=== PATIENT | female | born 1950 | race Caucasian/White ===

== ENCOUNTER 2019-12-12 09:15 | Inpatient (IN) ==
[2019-12-05 17:33] LABS: Blood Urea Nitrogen 13 mg/dl (8-23); Carbon Dioxide 24 mmol/L (22-30); Glomerular Filtration Rate 87; Glucose 91 mg/dL (70-105)
[2019-12-05 17:34] LABS: Basophils # (Auto) 0.06 K/mcL (0.00-0.30); Basophils % (Auto) 0.6 % (0.0-2.0); Chloride 92 mmol/L (96-108); Eosinophils # (Auto) 0.13 K/mcL (0.00-0.70); Eosinophils % (Auto) 1.4 % (0.0-7.0); Granulocytes % (Auto) 68.3 % (38.0-78.0); Hematocrit 38.2 % (34.1-44.9); Hemoglobin 12.5 g/dL (11.2-15.7); Lymphocytes # (Auto) 2.23 K/mcL (1.50-4.80); Lymphocytes % (Auto) 23.8 % (15.5-49.0); Mean Cell Volume 96.2 fL (80.0-100.0); Mean Corpuscular HGB Conc 32.7 g/dL (31.0-36.0); Mean Platelet Volume 8.4 fL (7.4-10.4); Monocytes # (Auto) 0.55 K/mcL (0.10-0.90); Monocytes % (Auto) 5.9 % (1.0-12.0); Platelet Count 291 K/mcL (140-440); RBC 3.97 M/mcL (3.59-5.38); Red Cell Distribution Width 11.9 % (11.5-14.5); WBC 9.4 K/mcL (4.50-11.00)
[2019-12-06 16:09] LABS: Appearance,Urine CLEAR; Bacteria,Urine 0 /hpf (0); Bilirubin,Urine NEG (NEG); Color,Urine YELLOW; Culture Indicated,Urine NO; Glucose,Urine (UA) NEGATIVE (NEG); Ketones,Urine NEG (NEG); Leukocyte Esterase,Urine 25 /uL (NEG); Mucus,Urine FEW /hpf (0); Nitrate,Urine NEG (NEG); Protein,Urine NEG (NEG); Specific Gravity,Urine 1.023 (1.000-1.035); Urine Blood NEG mg/dL (<0.03); Urine Hyaline Cast 34 /lpf (0-2); Urine RBC 2 /hpf (0-1); Urine Squamous Epithelial Cell 2 /hpf (0-4); Urine WBC 3 /hpf (0-4); Urobilinogen,Urine NEG (NEG)
[~2019-12-12 09:15] MED LIST: ACETAMINOPHEN 500 MG TABLET PO SCH; CELECOXIB 200 MG CAPSULE PO SCH; GABAPENTIN 300 MG CAPSULE PO SCH; ceFAZolin 2 GM in DEXTROSE 5% IN WATER 50 ML IV SCH; oxyCODONE 10 MG TAB.ER.12H PO SCH
[2019-12-12] MEDS ORDERED: IPRATROPIUM/ALBUTEROL 3 ML AMPUL.NEB NEB PRN ×2 (10:00→13:02)
[2019-12-12] MEDS ORDERED: SCOPOLAMINE 1 PATCH PATCH TOPICAL PRN (10:00)
[2019-12-12 10:58] LABS: POC Blood Urea Nitrogen 12 mg/dl (8-23); POC CO2 25 mmol/L (22-30); POC Calcium, Ionized 1.18 mmol/L (1.16-1.32); POC Chloride 103 mmol/L (96-108); POC Creatinine 0.6 mg/dl (0.6-1.1); POC Glucose, Random 83 mg/dL (70-105); POC Potassium 4.5 mmol/L (3.3-5.1); POC Sodium 140 mmol/L (133-145)
[2019-12-12] MEDS ORDERED: fentaNYL 100 MCG/2 ML VIAL IV ONE (12:04)
[2019-12-12] MEDS ORDERED: KETAMINE 100 MG/ML ML IV ONE (12:04)
[2019-12-12] MEDS ORDERED: HYDROmorphone 1 MG/ML SYRINGE IV ONE (12:04)
[2019-12-12] MEDS ORDERED: PROPOFOL 200 MG/20 ML VIAL IV ONE (12:04)
[2019-12-12] MEDS ORDERED: ROPIVACAINE HCL/PF 20 ML VIAL IJ ONE (12:04)
[2019-12-12] MEDS ORDERED: TRANEXAMIC ACID 1,000 MG/10 ML VIAL IV ONE (12:04)
[2019-12-12] MEDS ORDERED: ePHEDrine 50 MG/ML AMPUL IV ONE (12:04)
[2019-12-12] MEDS ORDERED: SUCCINYLCHOLINE 20 MG/ML ML IV ONE (12:04)
[2019-12-12] MEDS ORDERED: ONDANSETRON 4 MG/2 ML VIAL IV ONE (12:04)
[2019-12-12] MEDS ORDERED: LIDOCAINE HCL/PF 100 MG/5 ML SYRINGE IV ONE (12:04)
[2019-12-12] MEDS ORDERED: DEXAMETHASONE 10 MG/ML VIAL IV ONE (12:04)
[2019-12-12] MEDS ORDERED: GLYCOPYRROLATE 0.2 MG/ML VIAL IV ONE (12:04)
[2019-12-12] MEDS ORDERED: LACTATED RINGERS 250 ML IV PRN (13:02)
[2019-12-12] MEDS ORDERED: METHOCARBAMOL 1,000 MG/10 ML VIAL IV PRN (13:02)
[2019-12-12] MEDS ORDERED: NALOXONE HCL 0.4 MG/ML VIAL IV PRN (13:02)
[2019-12-12] MEDS ORDERED: FLUMAZENIL 0.1 MG/ML ML IV PRN (13:02)
[2019-12-12] MEDS ORDERED: LACTATED RINGERS 1,000 ML IV SCH (13:15)
--- NOTE | 2019-12-12 13:19 | Brief Operative Note ---
Date of procedure: 12/12/19 Pre-op diagnosis: Right reverse tsa instability Post-op diagnosis: same Procedure: Right shoulder reverse tsa revision Grafts/Implants: Yes Anesthesia: GETA Surgeon: Ernesto Rae Technology Consultant: Tim Redman Estimated blood loss (cc): 50 Specimens Removed/Pathology: none sent Condition: stable Disposition: PACU
[2019-12-12] MEDS ORDERED: TRANEXAMIC ACID 1,000 MG/10 ML VIAL IV SCH (13:20)
[2019-12-12] MEDS ORDERED: POLYETHYLENE GLYCOL 3350 17 GM PACKET PO PRN (13:20)
[2019-12-12] MEDS ORDERED: ACETAMINOPHEN 325 MG TABLET PO PRN (13:20)
[2019-12-12] MEDS ORDERED: oxyCODONE/APAP 5/325MG TABLET PO PRN (13:20)
[2019-12-12] MEDS ORDERED: MAGNESIUM HYDROXIDE 30 ML ORAL.SUSP PO PRN (13:20)
[2019-12-12] MEDS ORDERED: BISACODYL 10 MG SUPP.RECT PR PRN (13:20)
[2019-12-12] MEDS ORDERED: FLEETS ADULT ENEMA PR PRN (13:20)
[2019-12-12] MEDS ORDERED: HYDROmorphone 1 MG/ML SYRINGE IV PRN (13:20)
[2019-12-12] MEDS ORDERED: BENZOCAINE/MENTHOL 1 LOZENGE PO PRN (13:20)
[2019-12-12] MEDS ORDERED: traMADol 50 MG TABLET PO PRN (13:22)
--- NOTE | 2019-12-12 13:34 | Discharge Summary ---
Ortho Discharge - TSA - Patient Instructions Diet: Regular Diet Activity: activity as tolerated, weight bearing as tolerated Total Shoulder Protocol: Leave immobilizer in place except for bathing and ROM. Abduction pillow. Continue to wear sling until seen by physician. Codman Pendulum : These exercises use momentum produced by your body to move your shoulder joint. Bend your knees and shift your weight to your front leg, then back, allowing your arm to swing in the same directions. Using the same technique, alternately shift your weight between your right and left legs, allowing your arm to swing from side to side. These exercises are also performed in counterclockwise and clockwise circular motions. Typically these exercises are performed several times per day, for a set number repetitions or minutes, such as 20 times in a row or 5 minutes at a time. Dressing Care: May shower in 2 days - Follow Up Plan Follow Up Appointments: Tim Redman PA-C [Physician Security Ambassador] - 12/27/19 9:20 am Disposition: Home, Self-Care Prognosis: Good Rehab Potential: Good I certify that the patient requires SNF services: No Overall status at discharge: patient is progressing back to baseline - Orders For Discharge Prescriptions: Aspirin [Ecotrin] 325 mg PO DAILY #14 tab.ec Prescription Printed oxyCODONE/APAP [Percocet 5-325 mg] 1 - 2 tab PO Q4H PRN #30 tab PRN Reason: Pain Prescription Printed Additional Discharge Orders: Physical Therapy at Discharge - TSA Location: None Selected Brace/Splint Location: None Selected
[2019-12-12] MEDS ORDERED: GENTAMICIN SULFATE 800 MG/20 ML VIAL IR ONE (13:35)
[2019-12-12] MEDS ORDERED: CLINDAMYCIN PHOSPHATE TOPICAL PRN (13:45)
[2019-12-12] MEDS ORDERED: BUTALBITAL PO PRN (13:45)
[2019-12-12] MEDS ORDERED: CAFFEINE PO PRN (13:45)
[2019-12-12] MEDS ORDERED: ASPIRIN PO PRN (13:45)
--- NOTE | 2019-12-12 14:04 | Operative Note ---
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 PROCEDURE: Right reverse total shoulder revision of the glenosphere and the poly liner on the femoral side. SURGEON: Ernesto Rae M.D. SERVICE DESK AGENT: Tim Redman PA-C. The PA's assistance was required for the safe and efficient completion of the entire case. This provider's expertise and technical skill were required throughout the case. The PA assisted with preoperative coordination, intraoperative retraction, wound closure, dressing and splint application, as well as postoperative documentation and care coordination. ANESTHESIA: General LMA anesthesia. COMPLICATIONS: None. DESCRIPTION OF PROCEDURE: The patient was brought to the operating room and put to sleep with general LMA anesthesia. Once asleep, the patient had the right shoulder sterilely prepped and draped in the usual sterile fashion. I made an incision through the prior scar where she had a reverse shoulder prior. I exposed the joint after retracting the deltoid laterally with a Puckett retractor. There was some subluxation, and it seemed to be unstable. There was quite a bit of blood that came from the joint itself. No signs of purulence or infection. At this point we subluxed the humeral head forward and removed the poly liner. Once this was removed, we then retracted the humeral shaft posteriorly and removed the glenosphere. The glenosphere was removed using a glenosphere puller. Once done, we irrigated again and then replaced the glenosphere with 2 mm eccentricity inferiorly. After this was tapped into place and the screw relocked into the metaglene, the other screws in the metaglene were tightened as well. There was no instability or loosening. No sign of infection. At this point we also revised the poly liner. It was originally a 9 mm. We went to 15 mm in thickness to tension the soft tissue envelope. This was trialed and made a very stable shoulder without impingement. We irrigated once more and implanted a 15 mm augment with a poly liner. This was also eccentric. We irrigated thoroughly. The patient tolerated this well. There were no complications. We closed the wound with Stratafix and 2-0 Vicryl and adhesive closure on the skin. The patient had a Donjoy sling fitted and given to her. Blood loss was about 50 to 100 mL. [email or web address] Job ID: [id number] Doc ID: [id number] Ernesto Rae MD
--- NOTE | 2019-12-12 14:24 | XRay Report ---
INDICATION: Post-OP Total Shoulder. Revision right reverse shoulder arthroplasty TECHNIQUE: Portable AP and Y views of the right shoulder COMPARISON: Previous examinations dated 09/06/2019 FINDINGS: Apparent interval revision of right reverse shoulder arthroplasty. Alignment is anatomic. There has been prior right Heidi procedure IMPRESSION: Status post revision of reverse shoulder arthroplasty Interpreted and Authenticated by: Brennon Fong 12/12/19
[2019-12-12] MEDS: ONDANSETRON 4 MG/2 ML VIAL IV PRN ×2 (15:12→21:47)
[2019-12-12] MEDS: MISOPROSTOL 200 MCG PO SCH ×2 (15:15→21:05)
[2019-12-12] MEDS: DICLOFENAC SODIUM PO SCH ×2 (15:15→21:05)
[2019-12-12] MEDS: GABAPENTIN 300 MG CAPSULE PO SCH ×3 (15:53→21:04)
[2019-12-12] MEDS: METHOCARBAMOL 500 MG TABLET PO SCH ×2 (15:54→21:03)
[2019-12-12] MEDS: 0.9 % SODIUM CHLORIDE 10 ML SYRINGE IV SCH ×2 (16:13→21:05)
[2019-12-12] MEDS: PROMETHAZINE 25 MG/ML VIAL IV PRN (16:22)
[2019-12-12] MEDS: KETOROLAC 15 MG/ML VIAL IV PRN (16:47)
[2019-12-12] MEDS: LACTATED RINGERS 1,000 ML IV SCH ×2 (16:49→22:24)
[2019-12-12] MEDS ORDERED: TEMAZEPAM 15 MG CAPSULE PO PRN (21:00)
[2019-12-12] MEDS ORDERED: EFLORNITHINE HCL TOPICAL SCH (21:00)
[2019-12-12] MEDS ORDERED: SENNOSIDES 1 TABLET PO SCH (21:00)
[2019-12-12] MEDS ORDERED: SIMVASTATIN 20 MG TABLET PO SCH (21:00)
[2019-12-12] MEDS ORDERED: VITAMIN D3 1,000 UNIT TABLET PO SCH (21:00)
[2019-12-12] MEDS ORDERED: MONTELUKAST 10 MG TABLET PO SCH (21:00)
[2019-12-12] MEDS: ceFAZolin 1 GM VIAL IV SCH (21:02)
[2019-12-12] MEDS: DOCUSATE SODIUM 100 MG CAPSULE PO SCH (21:03)
[2019-12-12] MEDS: LORazepam 1 MG TABLET PO SCH (21:03)
[2019-12-12] MEDS: amLODIPine 5 MG TABLET PO SCH (21:04)
[2019-12-12] MEDS: Budesonide/Formoterol Fumarate [Symbicort 160-4.5 MCG] Inhaler INH SCH (21:04)
[2019-12-13] MEDS: PROMETHAZINE 25 MG/ML VIAL IV PRN ×2 (00:18→07:42)
[2019-12-13] MEDS: KETOROLAC 15 MG/ML VIAL IV PRN ×2 (02:11→08:23)
[2019-12-13] MEDS: ceFAZolin 1 GM VIAL IV SCH (03:52)
[2019-12-13] MEDS: 0.9 % SODIUM CHLORIDE 10 ML SYRINGE IV SCH (04:28)
[2019-12-13] MEDS: LACTATED RINGERS 1,000 ML IV SCH (07:41)
--- NOTE | 2019-12-13 07:41 | Orthopedic Progress Note ---
Subjective Patient information: Note initiated : 12/13/19 at 7:40 am Service Date, if different from initiated Date: [] Patient: Augustina Lewis 69 y/o F admitted on 12/12/19 for Right Reverse Total Shoulder Arthroplasty Revision. Chief Complaint: [Pt is stable this morning on post operative day 1 without any significant concerns or complaints. Patients vital signs have remained stable. Patients dressing is dry and is grossly intact from a neurovascular and motor standpoint. Patients 10 point ROS is otherwise negative. ] Objective Vital signs: Vital Signs Temp Pulse Pulse Resp BP Pulse Ox 12/13/19 07:33 97.7 F 91 H 16 154/78 97 12/13/19 04:11 97.9 F 93 H 12 151/77 96 12/12/19 23:04 97.4 F 87 12 132/68 94 12/12/19 20:00 87 87 12 94 12/12/19 18:55 97.5 F 91 H 12 117/65 94 12/12/19 16:32 87 111/64 94 12/12/19 16:02 87 109/62 91 12/12/19 15:32 91 H 115/65 93 12/12/19 15:17 98 H 131/69 92 12/12/19 15:02 98 H 159/71 95 12/12/19 14:48 114 H 149/73 94 12/12/19 14:32 93 H 91 H 130/73 12/12/19 14:20 97.5 F 94 H 16 127/68 95 12/12/19 14:15 96 H 12 132/70 95 12/12/19 14:10 97 H 10 L 136/77 92 12/12/19 13:55 104 H 10 L 130/72 98 12/12/19 13:50 105 H 13 129/73 95 12/12/19 13:45 103 H 14 117/68 97 12/12/19 13:40 103 H 16 119/59 99 12/12/19 13:35 96 H 15 105/54 100 12/12/19 13:30 91 H 18 100/54 100 12/12/19 13:25 97.7 F 91 H 18 96/41 100 12/12/19 10:29 98 F 69 16 133/76 98 Intake and Output 12/12/19 12/13/19 12/13/19 21:59 05:59 13:59 Intake Total 1158 Output Total 1500 753 750 Balance -1500 405 -750 Intake: IV 558 Lactated Ringers 1,000 ml @ 100 558 mls/hr IV .Q10H ETHEL Rx#: [id number] Oral 600 Output: Urine Catheter Amount 1200 Straight 1200 Void Amount 450 750 # of times incontinent of urine 3 Emesis 300 300 Other: Urine Appearance Clear Clear Straight Clear Urine Color Bright Yellow Bright Yellow Straight Bright Yellow Urine Odor Normal Normal Straight Normal Stool Size Small Small Stool Color Brown Brown Stool Consistency Formed Soft Formed Sophia # Voids 2 # Unmeasured Emesis 2 # Bowel Movements 1 1 Weight 137 lb 8 oz Intake & Output: Intake & Output 12/12/19 12/13/19 12/13/19 21:59 05:59 13:59 Intake Total 1158 Output Total 1500 753 750 Balance -1500 405 -750 Weight 137 lb 8 oz Intake: IV 558 Lactated Ringers 1,000 ml @ 100 558 mls/hr IV .Q10H ETHEL Rx#: [id number] Oral 600 Output: Urine Catheter Amount 1200 Straight 1200 Void Amount 450 750 # of times incontinent of urine 3 Emesis 300 300 Other: Urine Appearance Clear Clear Straight Clear Urine Color Bright Yellow Bright Yellow Straight Bright Yellow Urine Odor Normal Normal Straight Normal Stool Size Small Small Stool Color Brown Brown Stool Consistency Formed Soft Formed Sophia # Voids 2 # Unmeasured Emesis 2 # Bowel Movements 1 1 Incision: Yes healing Incision clean and dry: Yes Dressing: Yes clean Weight bearing status: full Neurological exam IM: Yes motor sensory intact, Yes neurovascular intact Extremities exam IM: Yes Foot pink and warm, Yes neurovascular intact - Labs CBC & BMP: 12/05/19 15:10 12/05/19 15:10 Labs: 12/05/19 15:10 Hgb 12.5 Hct 38.2 Assessment and Plan (1) History of reverse total replacement of right shoulder joint The patient has been educated regarding dressing care, Physical Therapy recommendations, home exercises, restrictions, and follow up appointments. The patient has had all necessary DME prescribed. The patient has remained relatively stable during their hospital course. Status: Acute
[2019-12-13] MEDS: DOCUSATE SODIUM 100 MG CAPSULE PO SCH (08:29)
[2019-12-13] MEDS: amLODIPine 5 MG TABLET PO SCH (08:29)
[2019-12-13] MEDS: LORazepam 1 MG TABLET PO SCH (08:29)
[2019-12-13] MEDS: Budesonide/Formoterol Fumarate [Symbicort 160-4.5 MCG] Inhaler INH SCH (08:29)
[2019-12-13] MEDS: GABAPENTIN 300 MG CAPSULE PO SCH (08:29)
[2019-12-13] MEDS: DICLOFENAC SODIUM PO SCH (08:30)
[2019-12-13] MEDS: METHOCARBAMOL 500 MG TABLET PO SCH (08:30)
[2019-12-13] MEDS: MISOPROSTOL 200 MCG PO SCH (08:30)
[2019-12-13] MEDS ORDERED: METOPROLOL SUCCINATE 25 MG TAB.XL.24H PO SCH (09:00)
[2019-12-13] MEDS ORDERED: TAMSULOSIN 0.4 MG CAPSULE PO SCH (09:00)
[2019-12-13] MEDS ORDERED: CITALOPRAM 20 MG TABLET PO SCH (09:00)
[2019-12-14] MEDS ORDERED: ESTRADIOL VAG SCH (09:00)
[2019-12-18] MEDS ORDERED: ALENDRONATE SODIUM 70 MG TABLET PO SCH (08:00)
== END 2019-12-13 10:01 | disposition home or self-care (01) | DRG 483 ==
LOC: MEDSUR 10:03
PROVIDERS: ADMIT Orthopaedic Surgery; ATTEND Orthopaedic Surgery

== ENCOUNTER 2024-11-09 13:41 | Inpatient (IN) ==
[2024-11-09] MEDS ORDERED: IOPAMIDOL 100 ML BOTTLE IV ONE (13:42)
[2024-11-09] MEDS: 0.9 % SODIUM CHLORIDE 1,000 ML IV ONE (14:06)
[2024-11-09 14:29] LABS: Basophils # (Auto) 0.03 K/mcL (0.00-0.30); Basophils % (Auto) 0.4 % (0.0-2.0); Eosinophils # (Auto) 0.12 K/mcL (0.00-0.70); Eosinophils % (Auto) 1.8 % (0.0-7.0); Hematocrit 35.9 % (34.1-44.9); Lymphocytes # (Auto) 1.72 K/mcL (1.50-4.80); Lymphocytes % (Auto) 25.1 % (15.5-49.0); Mean Cell Volume 87.8 fL (80.0-100.0); Mean Corpuscular HGB Conc 30.6 g/dL (31.0-36.0); Mean Platelet Volume 8.6 fL (8.8-12.5); Monocytes # (Auto) 0.55 K/mcL (0.10-0.90); Neutrophils % (Auto) 64.1 % (38.0-78.0); Platelet Count 345 K/mcL (140-440); RBC 4.09 M/mcL (3.59-5.38); Red Cell Distribution Width 14.1 % (11.5-14.5); WBC 6.8 K/mcL (4.5-11.0)
[2024-11-09 14:51] LABS: ALT/SGPT 9 U/L (<40); AST/SGOT 15 U/L (<32); Albumin 4.1 gm/dL (3.2-5.2); Albumin/Globulin Ratio 1.7 (1.0-2.3); Alkaline Phosphatase 64 U/L (39-117); Bilirubin,Total < 0.2 mg/dL (0.1-1.0); Blood Urea Nitrogen 11 mg/dL (8-23); Calcium 9.1 mg/dL (8.6-10.4); Carbon Dioxide 25 mmol/L (22-30); Chloride 103 mmol/L (96-108); Globulin 2.4 gm/dL (2.2-3.7); Glomerular Filtration Rate 84; Glucose 97 mg/dL (70-105); Potassium 3.8 mmol/L (3.3-5.1); Sodium 139 mmol/L (133-145)
[2024-11-09 15:39] LABS: Appearance,Urine Clear (Clear); Bilirubin,Urine Negative (Negative); Color,Urine Yellow; Glucose,Urine (UA) Negative (Negative); Ketones,Urine Negative (Negative); Leukocyte Esterase,Urine Negative /uL (Negative); Nitrate,Urine Negative (Negative); PH,Urine 5.5 (5.0-9.0); Protein,Urine Negative (Negative); Specific Gravity,Urine <= 1.005 (1.000-1.035); Urine Blood Trace-intact ery/mcL (Negative); Urine RBC 0 /hpf (0-3); Urine Squamous Epithelial Cell 0 /hpf (0-4); Urine WBC 0 /hpf (0-4); Urobilinogen,Urine Normal
[2024-11-09 16:33] LABS: Alcohol, Blood < 10.1 mg/dL; Alcohol,Blood < 0.010 gm/dL (<0.010)
[2024-11-09 16:43] LABS: Thyroid Stimulating Hormone 1.24 uIU/mL (0.27-5.01)
[2024-11-09] MEDS: GABAPENTIN 300 MG CAPSULE PO ONE ×2 (17:15→21:51)
[2024-11-09] MEDS: traMADol 50 MG TABLET PO ONE (17:15)
[2024-11-09 18:26] LABS: Amphetamine Screen,Urine None detected; Barbiturate Screen,Urine Suspect positive; Benzodiazepines Screen,Urine Suspect positive; Cannabinoid Screen,Urine None detected; Cocaine Screen,Urine None detected; Fentanyl, Urine Screen None Detected; Opiate Screen,Urine None detected; Oxycodone, Urine Screen None detected; Phencyclidine Screen,Urine None detected
[2024-11-09] MEDS: OLANZapine 10 MG VIAL IM SCH (19:28)
[2024-11-09 20:36] LABS: Appearance,Urine CLEAR (Clear); Bilirubin,Urine Negative (Negative); Color,Urine COLORLESS; Glucose,Urine (UA) Negative (Negative); Ketones,Urine Negative (Negative); Leukocyte Esterase,Urine Negative /uL (Negative); Nitrate,Urine Negative (Negative); Protein,Urine Negative (Negative); Specific Gravity,Urine 1.017 (1.000-1.035); Urine Blood 0.03 mg/dL (Negative); Urine RBC 4 /hpf (0-3); Urine Squamous Epithelial Cell 0 /hpf (0-4); Urine WBC < 1 /hpf (0-4); Urobilinogen,Urine Negative
[2024-11-09 21:00] LABS: Blood Urea Nitrogen 9 mg/dL (8-23); Calcium 8.9 mg/dL (8.6-10.4); Carbon Dioxide 24 mmol/L (22-30); Chloride 107 mmol/L (96-108); Glomerular Filtration Rate 89; Glucose 94 mg/dL (70-105); Potassium 3.7 mmol/L (3.3-5.1); Sodium 144 mmol/L (133-145)
[2024-11-09 21:10] LABS: Free T3 3.4 pg/mL (2.0-4.4)
[2024-11-09] MEDS ORDERED: traMADol 50 MG TABLET PO PRN (21:11)
[2024-11-09] MEDS ORDERED: traMADol (PP) 50 MG TABLET (#4) PO PRN (21:11)
[2024-11-09] MEDS ORDERED: GABAPENTIN 300 MG CAPSULE PO SCH (21:11)
[2024-11-09] MEDS ORDERED: MELATONIN 3 MG TABLET PO PRN (21:11)
[2024-11-09] MEDS ORDERED: ALBUTEROL SULFATE 60 PUFF INHALER INH PRN (21:11)
[2024-11-09] MEDS: MONTELUKAST 10 MG TABLET PO SCH (21:50)
[2024-11-09] MEDS: LORazepam 1 MG TABLET PO SCH (21:50)
[2024-11-09] MEDS: ATORVASTATIN 10 MG TABLET PO SCH (21:50)
[2024-11-09] MEDS: SENNOSIDES 1 TABLET PO SCH (21:50)
[2024-11-09] MEDS: MELATONIN 3 MG TABLET PO PRN (21:51)
[2024-11-09] MEDS: amLODIPine 5 MG TABLET PO ONE (22:31)
[2024-11-09] MEDS: 0.9 % SODIUM CHLORIDE 10 ML SYRINGE IV SCH (22:32)
[2024-11-09] MEDS: amLODIPine 5 MG TABLET PO SCH (22:47)
[2024-11-10] MEDS: GABAPENTIN 300 MG CAPSULE PO SCH ×2 (06:51→20:44)
[2024-11-10 07:49] LABS: Blood Urea Nitrogen 11 mg/dL (8-23); Calcium 9.3 mg/dL (8.6-10.4); Carbon Dioxide 27 mmol/L (22-30); Chloride 108 mmol/L (96-108); Glomerular Filtration Rate 62; Glucose 92 mg/dL (70-105); Potassium 3.9 mmol/L (3.3-5.1); Sodium 146 mmol/L (133-145)
[2024-11-10] MEDS ORDERED: IOPAMIDOL 100 ML BOTTLE IV ONE (07:52)
[2024-11-10] MEDS: TAMSULOSIN 0.4 MG CAPSULE PO SCH (09:19)
[2024-11-10] MEDS: amLODIPine 5 MG TABLET PO SCH (09:19)
[2024-11-10] MEDS: METOPROLOL SUCCINATE 25 MG TAB.XL.24H PO SCH (09:20)
[2024-11-10] MEDS: ENOXAPARIN 40 MG/0.4 ML SYRINGE SQ SCH (09:20)
[2024-11-10] MEDS: CITALOPRAM 20 MG TABLET PO SCH (09:20)
[2024-11-10] MEDS: DEXTROSE 5%-1/2NS 1,000 ML IV SCH (10:57)
[2024-11-10] MEDS ORDERED: DEXTROSE 5% IN WATER 1,000 ML IV SCH (11:00)
[2024-11-10] MEDS ORDERED: PIMECROLIMUS 30 GM CREAM..G. TP PRN (13:17)
[2024-11-10] MEDS: LIDOCAINE 4% TOP PATCH TOPICAL SCH ×2 (15:33→20:41)
[2024-11-10] MEDS: traMADol 50 MG TABLET PO PRN (15:57)
[2024-11-10] MEDS: METHOCARBAMOL 500 MG TABLET PO PRN (15:57)
[2024-11-10 17:31] LABS: Blood Urea Nitrogen 12 mg/dL (8-23); Calcium 8.7 mg/dL (8.6-10.4); Carbon Dioxide 26 mmol/L (22-30); Chloride 104 mmol/L (96-108); Glomerular Filtration Rate 84; Glucose 142 mg/dL (70-105); Potassium 3.5 mmol/L (3.3-5.1); Sodium 140 mmol/L (133-145)
[2024-11-10] MEDS: BUTALB/ACETAMINOPHEN/CAFFEINE 1 TABLET PO PRN (20:44)
[2024-11-10] MEDS ORDERED: guaiFENesin 600 MG TAB.SR.12H PO PRN (21:00)
[2024-11-11 06:09] LABS: ALT/SGPT 9 U/L (<40); AST/SGOT 14 U/L (<32); Albumin 4.1 gm/dL (3.2-5.2); Albumin/Globulin Ratio 1.5 (1.0-2.3); Alkaline Phosphatase 69 U/L (39-117); Bilirubin,Direct < 0.2 mg/dL (0-0.3); Bilirubin,Total 0.3 mg/dL (0.1-1.0); Blood Urea Nitrogen 10 mg/dL (8-23); Calcium 9.4 mg/dL (8.6-10.4); Carbon Dioxide 22 mmol/L (22-30); Chloride 105 mmol/L (96-108); Globulin 2.7 gm/dL (2.2-3.7); Glomerular Filtration Rate 89; Glucose 126 mg/dL (70-105); Lactate Dehydrogenase 200 U/L (135-225); Phosphorous 2.4 mg/dL (2.5-4.5); Potassium 3.7 mmol/L (3.3-5.1); Sodium 140 mmol/L (133-145); Triglycerides 217 mg/dL (<150); Uric Acid 3.1 mg/dL (2.5-8.0)
[2024-11-11] MEDS: ONDANSETRON 4 MG/2 ML VIAL IV PRN (07:10)
[2024-11-11 08:23] LABS: Basophils # (Auto) 0.05 K/mcL (0.00-0.30); Basophils % (Auto) 0.3 % (0.0-2.0); Eosinophils # (Auto) 0.13 K/mcL (0.00-0.70); Eosinophils % (Auto) 0.8 % (0.0-7.0); Hematocrit 37.5 % (34.1-44.9); Hemoglobin 11.5 g/dL (11.2-15.7); Lymphocytes # (Auto) 2.44 K/mcL (1.50-4.80); Lymphocytes % (Auto) 15.3 % (15.5-49.0); Mean Cell Volume 88.2 fL (80.0-100.0); Mean Corpuscular HGB Conc 30.7 g/dL (31.0-36.0); Monocytes # (Auto) 1.23 K/mcL (0.10-0.90); Monocytes % (Auto) 7.7 % (1.0-12.0); Neutrophils % (Auto) 75.6 % (38.0-78.0); Platelet Count 400 K/mcL (140-440); RBC 4.25 M/mcL (3.59-5.38); Red Cell Distribution Width 14.4 % (11.5-14.5); WBC 15.9 K/mcL (4.5-11.0)
[2024-11-11] MEDS: ACETAMINOPHEN 325 MG TABLET PO PRN (08:37)
[2024-11-11 09:05] LABS: Band Neutrophils % 2 % (0-10); Lymphocytes % 13 % (15-49); Monocytes % (Manual) 3 % (1-12); Platelet Estimate NORMAL (Normal); RBC Morphology NORMAL (Normal); Reactive Lymphocytes 4 % (0-2); Segmented Neutrophils % 78 % (38-78)
[2024-11-11] MEDS: DEXTROSE 5%-1/2NS 1,000 ML IV ONE (15:36)
[2024-11-11] MEDS: AMPICILLIN SODIUM/SULBACTAM NA 3 GM in 0.9 % SODIUM CHLORIDE 100 ML IV SCH (16:24)
[2024-11-11 23:20] LABS: Appearance,Urine Cloudy (Clear); Bacteria,Urine Many /hpf (0); Bilirubin,Urine Negative (Negative); Color,Urine Yellow; Glucose,Urine (UA) Negative (Negative); Ketones,Urine Negative (Negative); Leukocyte Esterase,Urine Small /uL (Negative); Nitrate,Urine Positive (Negative); PH,Urine 5.5 (5.0-9.0); Protein,Urine 100 mg/dL (Negative); Specific Gravity,Urine 1.025 (1.000-1.035); Urine Blood Large ery/mcL (Negative); Urine RBC > 182 /hpf (0-1); Urine Squamous Epithelial Cell 1 /hpf (0-4); Urine WBC > 182 /hpf (0-4); Urobilinogen,Urine Normal
[2024-11-12 06:23] LABS: ALT/SGPT 5 U/L (<40); AST/SGOT 10 U/L (<32); Albumin 3.3 gm/dL (3.2-5.2); Albumin/Globulin Ratio 1.4 (1.0-2.3); Alkaline Phosphatase 48 U/L (39-117); Bilirubin,Direct < 0.2 mg/dL (0-0.3); Bilirubin,Total 0.4 mg/dL (0.1-1.0); Blood Urea Nitrogen 8 mg/dL (8-23); Calcium 8.2 mg/dL (8.6-10.4); Carbon Dioxide 24 mmol/L (22-30); Chloride 103 mmol/L (96-108); Globulin 2.3 gm/dL (2.2-3.7); Glomerular Filtration Rate 94; Glucose 119 mg/dL (70-105); Lactate Dehydrogenase 148 U/L (135-225); Phosphorous 2.7 mg/dL (2.5-4.5); Potassium 3.4 mmol/L (3.3-5.1); Sodium 136 mmol/L (133-145); Triglycerides 125 mg/dL (<150); Uric Acid 2.8 mg/dL (2.5-8.0)
[2024-11-12] MEDS ORDERED: VANCOMYCIN PER PHARMACY IV SCH (07:37)
[2024-11-12 08:35] LABS: Basophils # (Auto) 0.01 K/mcL (0.00-0.30); Basophils % (Auto) 0.1 % (0.0-2.0); Eosinophils # (Auto) 0.02 K/mcL (0.00-0.70); Eosinophils % (Auto) 0.2 % (0.0-7.0); Hemoglobin 9.9 g/dL (11.2-15.7); Lymphocytes # (Auto) 0.94 K/mcL (1.50-4.80); Lymphocytes % (Auto) 9.9 % (15.5-49.0); Mean Cell Volume 89.4 fL (80.0-100.0); Mean Corpuscular HGB Conc 30.9 g/dL (31.0-36.0); Mean Platelet Volume 8.7 fL (8.8-12.5); Monocytes # (Auto) 0.77 K/mcL (0.10-0.90); Monocytes % (Auto) 8.1 % (1.0-12.0); Neutrophils % (Auto) 81.5 % (38.0-78.0); Platelet Count 260 K/mcL (140-440); RBC 3.58 M/mcL (3.59-5.38); Red Cell Distribution Width 14.6 % (11.5-14.5); WBC 9.5 K/mcL (4.5-11.0)
[2024-11-12] MEDS: VANCOMYCIN 1,000 MG in 0.9 % SODIUM CHLORIDE 250 ML IV SCH (08:45)
[2024-11-12] MEDS: LOPERAMIDE 2 MG CAPSULE PO ONE (15:52)
[2024-11-13] MEDS ORDERED: BENZOCAINE/MENTHOL 1 LOZENGE PO PRN (10:04)
[2024-11-13] MEDS ORDERED: ceFAZolin 1 GM VIAL IV SCH (11:00)
[2024-11-13] MEDS: LOPERAMIDE 2 MG CAPSULE PO PRN (11:22)
[2024-11-13] MEDS: ceFAZolin 1 GM VIAL IV SCH (11:22)
[2024-11-14] MEDS: cefTRIAXone 1 GM VIAL IV SCH (13:17)
[2024-11-14] MEDS: cefTRIAXone 1 GM in DEXTROSE 5% IN WATER 50 ML IV SCH (14:03)
[2024-11-15 07:28] VITALS: TEMP 98.7
[2024-11-15] MEDS: HEPARIN 10 UNITS/ML 5ML FLUSH IV SCH (11:24)
[2024-11-15 11:39] VITALS: O2SAT 100
== END 2024-11-15 12:44 | disposition home or self-care (01) | DRG 871 ==
LOC: ED 13:41 → MEDSUR 21:03
PROVIDERS: ADMIT Internal Medicine; ATTEND Internal Medicine